=== PATIENT | female | born 1960 | race Caucasian/White ===

== ENCOUNTER 2019-02-24 06:45 | Inpatient (IN) | payer OTHER ==
[2019-02-17 09:23] LABS: APTT 27.3 Seconds (25.0-31.3); PROTIME 10.3 Seconds (9.20-11.50)
[2019-02-17 09:24] LABS: ABSOLUTE BASOPHILS 0.1 thou/uL (0.0-0.2); ABSOLUTE EOSINOPHILS 0.1 thou/uL (0.0-0.7); ABSOLUTE LYMPHOCYTES 1.4 thou/uL (0.8-5.3); ABSOLUTE MONOCYTES 0.5 thou/uL (0.0-1.2); ABSOLUTE NEUTROPHILS 5.9 thou/uL (1.6-8.1); BASOPHILS 0.6 %; EOSINOPHILS 1.9 %; HEMATOCRIT 40.7 % (37.0-47.0); HEMOGLOBIN 13.7 gm/dL (12.0-15.0); LYMPHOCYTES 17.7 %; MCHC 33.6 g/dL (28.0-37.0); MCV 92.2 fL (80.0-100.0); MONOCYTES 6.5 %; MPV 7.3 fl. (7.2-11.1); NUCLEATED RBCS 0 /100WBC; PLATELET COUNT* 433 thou/uL (150-400); POLYS 73.3 %; RBC 4.41 mil/uL (4.20-5.00); RDW-CV 14.6 % (10.5-14.5)
[2019-02-17 09:25] LABS: ALBUMIN 3.9 g/dL (3.4-5.0); CREATININE 0.9 mg/dL (0.6-1.3); POTASSIUM 4.2 mmol/L (3.5-5.1); TOTAL BILIRUBIN 0.3 mg/dL (<0.1-1.0); TOTAL PROTEIN 7.7 g/dL (6.4-8.2)
[2019-02-17 10:32] LABS: ESR (SEDRATE) 2 mm/hr (0-30)
--- NOTE | 2019-02-17 17:04 | EKG ---
[place] [address] ELECTROCARDIOGRAM REPORT Name: CHARLOTTE WISE Efra Room: [facility].#: [id number] Admission: Attend Phys: Filemon Hampton, Discharge: Date of : 60 Report #: [id number] THIS REPORT FOR: //name// [facility] Test Date: 2019-02-17 Test Time: 09:22:19 Pat Name: CHARLOTTE WISE Department: Room: Gender: F Rail Equipment Operator: : 1960 Requested By: Filemon Hampton Order Number: [id number] Reading MD: Tor Valente Measurements Intervals [place] Rate: 62 P: 41 NE: 171 QRS: 38 QRSD: 88 T: 35 QT: 429 QTc: 436 Interpretive Statements Sinus rhythm No previous ECG available for comparison Electronically Signed On 02-17-2019 17:04:02 CDT by Tor Valente [email or web address] <ELECTRONICALLY SIGNED> By: Tor Valente MD, [facility] 02/17/19 1704 0922 1 Tor Valente MD, FACC /EPI
[~2019-02-24] VITALS: Ht 167.6 cm; Wt 66.7 kg
--- NOTE | ~2019-02-24 | OP ---
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 PROCEDURE PERFORMED: Revision left unicompartmental knee arthroplasty to a total knee arthroplasty. SURGEON: Filemon Hampton DO FINANCIAL SYSTEMS ANALYST: Dc Hendrix DO ANESTHESIA: General with local and nerve block by Anesthesia. ESTIMATED BLOOD LOSS: 100 mL. SPECIMENS REMOVED: None. DRAINS: None. COMPLICATIONS: None. 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 She did well up until the past few years when she has had worsening left knee pain, valgus angulation, and pain causing her to become more sedentary and affecting her ADLs. X-rays were taken demonstrating failure of the unicompartmental knee arthroplasty with development of lateral patellofemoral arthritis. Risks, benefits, complications, alternatives, and indications were discussed with the patient. She voiced understanding and wished to proceed. DESCRIPTION OF PROCEDURE: The patient was seen in the holding area. Correct operative site was marked. Verbal and written consent was obtained. She was transferred to the operative suite, placed supine on the operating table, [place] [address] OPERATIVE REPORT Name: PINEDA WISEJENNY HEREDIA Room: [address] IN [facility]#: [id number] Admission: 02/24/19 Attend Phys: Kulwinder Valentino Discharge: Date of : 60 Report #: [id number] given the benefit of general anesthesia by the anesthesia team. The left lower extremity was then prepped and draped in normal sterile fashion after a well-padded tourniquet was placed. Time-out was performed and all of the attendants were in agreement with the correct operative site and procedure to be performed. A 20-blade scalpel was used to make an anterior longitudinal incision over the knee. This was taken down to the level of the capsule. We then used a new 10-blade scalpel to perform a medial parapatellar arthrotomy. We then visualized the joint and there was some evidence of foreign body reaction with the synovium and this was excised. Once this was performed, we used our intramedullary drill for the femur in a normal fashion. Once this was passed, an intramedullary guide was placed and the distal femoral cutting block was pinned in place. We then resected the distal femur appropriately and removed the medial femoral condyle implant. We then placed our external tibial guide. Once this was appropriately placed for the resection, indrawing was used to verify the resection and the block was pinned in place. We then used an oscillating saw to perform our proximal tibia resection. Excess bone osteophytes were removed with a rongeur. A 4-in-1 cutting block was placed on the distal femur, measured to be a size 3. Size 3 cutting block was placed and external rotation was confirmed. We then completed the distal femoral cuts and excess bone osteophytes were removed. The trial implants were then placed appropriately. A size 12 spacer block was placed. The knee was taken through range of motion and found to be stable. We further prepared the femur as indicated and then resected our patella. Once proper resection was made, we measured it to be a size 32. PEG holes were drilled. Trial was placed. Knee was taken through range of motion and found to have excellent patellar tracking. The proximal tibia was then further prepared with the reamer and cruciate osteotome, and then the trial was removed. The knee was thoroughly irrigated with sterile saline and local anesthetic was injected. Cement was mixed on the back table under vacuum suction and placed on the cut bony surfaces as well as the final implants. These were malleted into place with excess cement removed using hemostat and a Stephen [place]. The knee was held in extension with a 14 mm trial during cement hardening and the patellar clamp was also placed. Once the cement was allowed to harden, the knee was taken through range of motion and found to have excellent range of motion. A 14 mm final poly was malleted into place, found to be stable, and the knee was thoroughly irrigated once again. TXA was placed for 5 minutes. Tourniquet was deflated. Hemostasis was maintained throughout. Knee was flexed. The capsule was closed using a #1 Vicryl followed by running #1 Quill suture. The soft tissues were closed using 2-0 Vicryl in inverted interrupted fashion followed by running 3-0 subcuticular Stratafix and Dermabond skin glue was placed over the incision. Sterile Mepilex dressing was placed. The patient was awakened from anesthesia and transferred to PACU in stable condition. All needle and [place] [address] [address] OPERATIVE REPORT Name: CHARLOTTE WISE Room: [address] IN ..#: [id number] Admission: 02/24/19 Attend Phys: Kulwinder Valentino Discharge: Date of : 60 Report #: [id number] instrument counts were correct at the end of the case x2. Fei Hampton was present through all critical decision making aspects of the case. By: [id number] Hampton DO /nt
[~2019-02-24 06:45] MED LIST: ACETAMINOPHEN-120 ML PO; AMBIEN 5 MG TABL5 M1 PO; ATENOLOL 25MG T25 MG PG; ATENOLOL 50MG T50 M1 PO; ATIVAN1 MG PO; LIPITOR; LORAZEPAM 2MG TA2 M1 PO; PREMARIN; PREMARIN30 GM TOP; PROAIR HFA8.5 GM IH; VICODIN ES 7.51 EACH PO
[2019-02-24 07:44] VITALS: BP 120/79
--- NOTE | 2019-02-24 13:15 | NUR ---
PATIENT REC'D TO RM 109 AFTER LTK SURGERY. POLAR PACK, THIGH HI TEDS AND FOOT SCDs IN PLACE. REPORT REC'D FROM STATE EPIDEMIOLOGIST. IV FLUIDS INITIATED, IV CATH SITE NOTED WNL. RASHARD POX IN PLACE. INITIAL PULSE NOTED 45-50, NOW MID 70s. O2 4L/NC SAT 100% INITIALLY, RT IN FOR INC SPIROMETER TEACHING. PATIENT NOTED GROGGY AT TIME OF INITIAL ASSESSMENT. PATIENT MORE ALERT AT THIS TIME. O2 2L/NC, SAT 96% CURRENTLY. SEE MAR FOR PAIN CONTROL. IV FLUIDS INFUSING W/O DIFF, IV SITE NOTED WNL. SBA UP TO BR USING FWW/GAIT BELT, STATES URINATING S/O DIFF. PATIENT STATES HAVING 6 YR LONG PROBLEMS WITH SWALLOWING, STATES THAT SHE TENDS TO CHOKE AND SOMETIMES VOMIT WITH SOME FOODS. PATIENT ENC TO F/U W/ PCP AFTER HOSPITALIZATION TO LOOK FARTHER IN TO THIS ISSUE. BED ALARM ON. CALL LIGHT IN REACH. ~TJRN
[2019-02-24 14:00] VITALS: BP 117/86
[2019-02-24 15:52] VITALS: BP 148/80
[2019-02-24 19:55] VITALS: BP 138/82
[2019-02-25] VITALS: BP 123/74
[2019-02-25 03:59] VITALS: BP 124/55
[2019-02-25 04:00] VITALS: BP 124/55
[2019-02-25 04:15] LABS: HEMATOCRIT 31.3 % (37.0-47.0); HEMOGLOBIN 10.4 gm/dL (12.0-15.0)
--- NOTE | 2019-02-25 06:21 | NUR ---
PATIENT HAD O2 OF 88% ON ROOM AIR. ADMINISTERED 1 LITER OF O2 BY NC THROUGHOUT THE SHIFT TO MAINTAIN O2 OVER 95%. PATIENT REPORTED PAIN 9/10 AND WAS GIVEN 2 MG DILAUDID AT 2019 AND 2353. KEPT REPORTING PAIN AT A 7/10 SO WAS GIVEN 5 MG OXYCODONE AT 2220 AND 0249. PATIENT WAS LETHARGIC AND DROWSY. I REFRAINED FROM ANY FURTHER DOSES OF DILAUDID ALTHOUGH SHE KEPT ASKING FOR IT. I WOULD ROUND EVERY HOUR AND FIND HER SLEEPING MOST OF THE NIGHT. HER PAIN APPEARS TO BE MANAGED/ ABX WAS ADMINISTERED/ NO NEW REPORTS OF WORSENING PAIN.
[2019-02-25 08:00] VITALS: BP 107/74
[2019-02-25 08:14] LABS: PROTIME 9.8 Seconds (9.20-11.50)
[2019-02-25 16:38] VITALS: BP 109/83
--- NOTE | 2019-02-25 16:46 | EKG ---
[place] [address] ELECTROCARDIOGRAM REPORT Name: CHARLOTTE WISE Room: [address] ADM IN M.R.#: [id number] Admission: 02/24/19 Attend Phys: Kulwinder Valentino Discharge: Date of : 60 Report #: [id number] THIS REPORT FOR: //name// [facility] Test Date: 2019-02-25 Test Time: 10:30:21 Pat Name: CHARLOTTE WISE Department: Room: [address] Gender: F Outdoor Pursuits Instructor: : 1960 Requested By: Dc Hendrix Order Number: [id number] Tien MD: Zane Lowry Measurements Intervals [place] Rate: 59 P: 29 [place]: 168 QRS: 24 QRSD: 85 T: 28 QT: 425 QTc: 421 Interpretive Statements Sinus rhythm Compared to ECG 02/17/2019 09:22:19 No significant changes Electronically Signed On 02-25-2019 16:46:23 CDT by Zane Lowry [email or web address] <ELECTRONICALLY SIGNED> By: Zane Lowry MD, [facility] 02/25/19 1646 1030 1030 Zane Lowry MD, FACC /EPI
--- NOTE | 2019-02-25 16:58 | NUR ---
PT REPORTS RIGHT KNEE PAIN THROUGHOUT SHIFT. PT REQUESTING IV PAIN MEDS IN ADDITION TO PO TO CONTROL PAIN. PT UP WITH ASSIST AND WALKER. PARTICIPATES IN THERAPY. PLAN TO GO HOME IN AM
--- NOTE | 2019-02-25 17:15 | NUR ---
SW met with pt to complete initial assessment, introduce self, and SW role. Pt alert, oriented. Pt lives alone and will have her 14 year old grjake live with her at [place] 6 wks (pt ruthann obviously doesn't drive). But pt explained that she has a boyfriend and children who could provide transportation and other support as needed. Pt works at [employer] and was aware of her benefits and possible copays for HH if needed and pt might opt for OP if any follow up therapy needed if pt can receive rides as needed. Pt said her son built her a ramp into her home. Pt has a RW but may need a cane and pt said that maybe her boyfriend or son can last picker a cane for her. No other known needs at this time.
[2019-02-25 22:37] VITALS: BP 152/88
[2019-02-26 03:54] LABS: HEMATOCRIT 31.1 % (37.0-47.0); HEMOGLOBIN 10.6 gm/dL (12.0-15.0)
--- NOTE | 2019-02-26 05:47 | NUR ---
PATIENT REPORTED PAIN 9/10 MAJORITY OF THE NIGHT. SHE WAS CLEARLY IN PAIN AND WAS NOT ABLE TO SLEEP THROUGH THE NIGHT. I GAVE HER SEVERAL DOSES OF OXY AND DILAUDID. SHE DID NOT GAIN MUCH RELIEF FROM THESE METHODS. SAW HER AT 0530 AND ORDERED AN ULTRASOUND TO RULE BLOOD CLOT IN LEG. SHE IS IN CONSTANT PAIN AND PAIN MANAGEMENT IS BEING DETERMINED.
[2019-02-26 07:40] VITALS: BP 134/80
[2019-02-26 09:52] VITALS: BP 134/80
--- NOTE | 2019-02-26 10:11 | NUR ---
INSULATION ESTIMATOR SPOKE TO THE PATIENT TO DISCUSS DISCHARGE PLANNING AND HH VS OUTPATIENT PT AT D/C. PATIENT INFORMS THAT SHE WOULD PREFER HH. D/C ROLLER MAN ASSISTED THE PATIENT IN COMPLETING CHOICE OF VENDOR FORM PATIENT HAD NO PREFERENCE ABOUT CHOICE OF HH AND RECOMMENDED [facility]. PATIENT IN AGREEMENT. CHOICE OF VENDOR FORM PLACED ON CHART. D/C ROLLER MAN SPOKE TO SHARON WITH [facility] TO INFORM OF THE REFERRAL AND FAXED PATIENT FACESHEET AND H&P. IF PATIENT D/C'S TODAY D/C ORDERS WILL NEED TO BE FAXED TO [facility]. CM WILL REMAIN AVAILABLE TO ASSIST AND FOLLOW NEEDED. [facility] PHONE: [phone] FAX: [phone]
[2019-02-26] MEDS ORDERED: LIDOPATCH1 EACH TOP (10:39)
[2019-02-26] MEDS ORDERED: OXYCODONE HCL 55 MG PO (10:39)
[2019-02-26] MEDS ORDERED: TRAMADOL 50 MG50 MG PO (10:39)
[2019-02-26] MEDS ORDERED: ELIQUIS5 MG PO (10:39)
--- NOTE | 2019-02-26 13:00 | NUR ---
ASSUMED CAERE OF PATIENT AT APPTROX 0730. ALERT AND ORIENTED X4. ASSESSMENT COMPLETED AND CHARTED. VSS ON ROOM AIR. PAIN MANAGED WITH ORAL PAIN MEDICATION. PATIENT WORKED WELL WITH THERAPIES AND PROGRESSED TOWARD GOALS. PATIENT DISCHARGED AT 1255 WITH ALL PERSONAL BELONGINGS, PRESCRIPTIONS AND DISCHARGE INFORMATION.
== END 2019-02-26 12:55 | disposition home health service (06) | DRG 467 ==
LOC: M.SUR 06:45 → M.ORTHSURG 11:41 → M.SUR 12:23 → M.ORTHSURG 02-26 12:55
PROVIDERS: Family Medicine; Orthopaedic Surgery; ADMIT Internal Medicine
PROC: 0SPD0MZ Removal of Lateral Unicondylar Synthetic Substitute from Left Knee Joint, Open Approach (ICD-10-PCS; principal; 2019-02-24)
PROC: 0SRD0J9 Replacement of Left Knee Joint with Synthetic Substitute, Cemented, Open Approach (ICD-10-PCS; principal; 2019-02-24)
DX: T84.89XA Other specified complication of internal orthopedic prosthetic devices, implants and grafts, initial encounter (principal); D62 Acute posthemorrhagic anemia; Y83.8 Other surgical procedures as the cause of abnormal reaction of the patient, or of later complication, without mention of misadventure at the time of the procedure; Z96.651 Presence of right artificial knee joint; I10 Essential (primary) hypertension; R09.02 Hypoxemia; Z90.49 Acquired absence of other specified parts of digestive tract; Z90.710 Acquired absence of both cervix and uterus; Y92.89 Other specified places as the place of occurrence of the external cause; Z87.891 Personal history of nicotine dependence; Z88.6 Allergy status to analgesic agent; Z88.2 Allergy status to sulfonamides; Z88.8 Allergy status to other drugs, medicaments and biological substances; Z79.1 Long term (current) use of non-steroidal anti-inflammatories (NSAID); Z79.899 Other long term (current) drug therapy

== ENCOUNTER 2019-03-06 10:28 | Emergency (ER) | payer OTHER ==
[~2019-03-06] VITALS: Ht 167.6 cm; Wt 66.7 kg
[~2019-03-06 10:28] MED LIST changes: +ELIQUIS5 MG PO; +LIDOPATCH1 EACH TOP; +OXYCODONE HCL 55 MG PO; +TRAMADOL 50 MG50 MG PO
[2019-03-06 10:52] VITALS: BP 148/87
== END 2019-03-06 10:53 | disposition home or self-care (01) ==
LOC: M.ERS 10:28
DX: M25.562 Pain in left knee (principal); Z76.0 Encounter for issue of repeat prescription; I10 Essential (primary) hypertension; Z90.710 Acquired absence of both cervix and uterus; Z90.49 Acquired absence of other specified parts of digestive tract; Z79.899 Other long term (current) drug therapy; Z88.2 Allergy status to sulfonamides; Z88.6 Allergy status to analgesic agent; Z88.8 Allergy status to other drugs, medicaments and biological substances

== ENCOUNTER 2019-11-19 11:16 | Emergency (ER) | payer OTHER ==
[~2019-11-19] VITALS: Ht 167.6 cm; Wt 72.6 kg
[2019-11-19] MEDS ORDERED: NORCO 5-325 TA1 EAC1 PO (12:13)
[2019-11-19 12:35] VITALS: BP 135/75
== END 2019-11-19 12:35 | disposition home or self-care (01) ==
LOC: M.ERS 11:16
DX: S60.212A Contusion of left wrist, initial encounter (principal); I10 Essential (primary) hypertension; Z90.49 Acquired absence of other specified parts of digestive tract; Z90.710 Acquired absence of both cervix and uterus; Z88.2 Allergy status to sulfonamides; Z88.6 Allergy status to analgesic agent; Z88.8 Allergy status to other drugs, medicaments and biological substances; W23.0XXA Caught, crushed, jammed, or pinched between moving objects, initial encounter; Y93.89 Activity, other specified; Y92.89 Other specified places as the place of occurrence of the external cause; Y99.8 Other external cause status